=== PATIENT | female | born 1995 | race Caucasian/White ===

== ENCOUNTER 2020-02-05 00:32 | Emergency (ER) | payer BC ==
[~2020-02-05] VITALS: Ht 167.6 cm; Wt 97.7 kg
[2020-02-05 00:36] VITALS: Ht 167.6 cm; Wt 97.7 kg
[2020-02-05] MEDS ORDERED: LEXAPRO20 MG PO (00:37)
[2020-02-05] MEDS ORDERED: SOLARAZE100 GM TP (00:53)
[2020-02-05] MEDS ORDERED: ULTRAM50 MG PO (01:05)
[2020-02-05 01:47] VITALS: BP 132/70
== END 2020-02-05 01:47 | disposition home or self-care (01) ==
LOC: D.ER 00:32
DX: M54.5 Low back pain (principal); G89.29 Other chronic pain